=== PATIENT | female | born 1975 | race Caucasian/White ===

== ENCOUNTER 2021-08-11 05:52 | Emergency (ER) | payer MEDICAID ==
[~2021-08-11] VITALS: Ht 157.5 cm; Wt 72.6 kg
--- NOTE | 2021-08-11 05:59 | NUR ---
Patient to ER bed 7 to gown for evaluation. Side rails up. BS BEING TAKEN AT THIS TIME
[2021-08-11 06:06] VITALS: BP_SYST 128
--- NOTE | 2021-08-11 06:08 | NUR ---
PT AMBULATES TO ER FROM HOME FOR INTERMITTENT SOB FOR X 1 MONTH, WORSENING LAST NIGHT AND INCREASED THIS MORNING ALONG WITH DIZZINESS. DENIES ANY CP/FEVERS/CHILLS. DENIES ANY FLU LIKE SYMPTOMS. RESP EVEN AND UNLABORED, ON RA @98%. SPEAKING IN FULL CLEAR SENTENCES. REPORTS HISTORY OF DIABETES AND TAKING METFORMIN ONLY. DENIES N/V/D. BS AT BEDSIDE 169MG/DL. SKIN W/D/I. WAITING FOR ER MD SAL.
[2021-08-11] MEDS ORDERED: METF-863 PO (06:10)
--- NOTE | 2021-08-11 06:25 | NUR ---
DR VELEZ IN ROOM FOR EXAM
--- NOTE | 2021-08-11 06:36 | NUR ---
PT TO XRAY
[2021-08-11 07:02] LABS: BASOPHILS # (AUTO) 0.1 K/uL (0.0-0.2); BASOPHILS % (AUTO) 0.9 % (0.0-2.0); EOSINOPHILS # (AUTO) 0.1 K/uL (0.0-0.4); EOSINOPHILS % (AUTO) 1.9 % (0.0-4.0); HEMATOCRIT 38.7 % (36-48); HEMOGLOBIN 12.5 g/dL (12.0-16.0); LYMPHOCYTES % (AUTO) 40.2 % (20.5-51.5); MEAN CORPUSCULAR HEMOGLOBIN 27 pg (27-31); MEAN CORPUSCULAR HGB CONC 32 % (32-36); MEAN CORPUSCULAR VOLUME 82 fL (79.0-98.0); MONOCYTES # (AUTO) 0.5 K/uL (0.0-1.0); MONOCYTES % (AUTO) 6.8 % (1.7-9.3); NEUTROPHILS # (AUTO) 3.8 K/uL (1.8-7.7); NEUTROPHILS % (AUTO) 50.2 % (40.0-70.0); PLATELET COUNT (AUTO) 258 K/uL (130-430); RED BLOOD CELL COUNT(AUTO) 4.73 MIL/uL (4.2-6.2); RED CELL DISTRIBUTION WIDTH 14.1 % (9.0-15.0); WHITE BLOOD COUNT (AUTO) 7.5 K/uL (4.8-10.8)
--- NOTE | 2021-08-11 07:20 | NUR ---
PT. COMFORTABLE AT THIS TIME, REVIEWED POC FOR THIS AM
[2021-08-11 07:49] LABS: ALANINE AMINOTRANSFERASE 30 U/L (12-78); ALBUMIN 3.5 g/dL (3.4-4.8); ANION GAP 9 (5-15); ASPARTATE AMINOTRANSFERASE 18 U/L (10-37); CALCIUM 8.9 mg/dL (8.4-11.0); CHLORIDE 101 mmol/L (98-107); CREATININE 0.72 mg/dL (0.55-1.30); GLUCOSE 198 mg/dL (70-99); POTASSIUM 3.9 mmol/L (3.5-5.1); SODIUM SERUM 137 mmol/L (136-145); TOTAL BILIRUBIN 0.4 mg/dL (0.0-1.0); UREA NITROGEN, BLOOD 14 mg/dL (8-21)
[2021-08-11 07:50] LABS: GFR AFRICAN AMERICAN 112 mL/min (>90)
[2021-08-11 08:03] LABS: THYROID STIMULATING HORMONE 4.29 uIu/mL (0.36-3.74)
--- NOTE | 2021-08-11 08:26 | NUR ---
Patient given written and verbal discharge instructions and verbalizes understanding. discussed with patient the results and treatment provided. Patient in stable condition. ID arm band removed. Patient educated on pain management and to follow up with PMD. Pain Scale 0. Opportunity for questions provided and answered.
[2021-08-11 08:27] VITALS: BP_SYST 109
== END 2021-08-11 08:27 | disposition home or self-care (01) ==
LOC: SED 05:52
DX: R07.9 Chest pain, unspecified (principal); R42 Dizziness and giddiness
CPT/HCPCS: 36415; 71045; 80053; 81002; 81025; 82962; 83880; 84443; 84484; 85025; 93005; 99285

== ENCOUNTER 2022-12-12 03:58 | Emergency (ER) | payer MEDICAID ==
[~2022-12-12] VITALS: Ht 157.5 cm; Wt 71.2 kg
[~2022-12-12 03:58] MED LIST: METF-863 PO
[2022-12-12 04:13] VITALS: BP_SYST 115; PULSE 63; RESP 18; TEMP 97.2; O2SAT 97
[2022-12-12 04:57] LABS: BASOPHILS % (AUTO) 0.6 % (0.0-2.0); EOSINOPHILS # (AUTO) 0.2 K/uL (0.0-0.4); EOSINOPHILS % (AUTO) 2.3 % (0.0-4.0); HEMOGLOBIN 12.9 g/dL (12.0-16.0); LYMPHOCYTES % (AUTO) 40.7 % (20.5-51.5); MEAN CORPUSCULAR HEMOGLOBIN 26 pg (27-31); MEAN CORPUSCULAR HGB CONC 32 % (32-36); MEAN CORPUSCULAR VOLUME 81 fL (79.0-98.0); MONOCYTES # (AUTO) 0.4 K/uL (0.0-1.0); NEUTROPHILS # (AUTO) 3.7 K/uL (1.8-7.7); NEUTROPHILS % (AUTO) 50.4 % (40.0-70.0); PLATELET COUNT (AUTO) 258 K/uL (130-430); RED BLOOD CELL COUNT(AUTO) 4.94 MIL/uL (4.2-6.2); RED CELL DISTRIBUTION WIDTH 14.8 % (9.0-15.0); WHITE BLOOD COUNT (AUTO) 7.4 K/uL (4.8-10.8)
[2022-12-12 05:16] LABS: ANION GAP 9 (5-15); CALCIUM 9.1 mg/dL (8.4-11.0); CARBON DIOXIDE 27 mmol/L (23-29); CHLORIDE 104 mmol/L (98-107); CREATININE 0.79 mg/dL (0.55-1.30); GFR AFRICAN AMERICAN 100 mL/min (>90); GLUCOSE 137 mg/dL (74-106); POTASSIUM 3.8 mmol/L (3.5-5.1); SODIUM SERUM 140 mmol/L (136-145); UREA NITROGEN, BLOOD 14 mg/dL (8-21)
[2022-12-12 05:23] LABS: ALANINE AMINOTRANSFERASE 10 U/L (12-78); ALBUMIN 3.7 g/dL (3.4-4.8); ASPARTATE AMINOTRANSFERASE 14 U/L (10-37); TOTAL BILIRUBIN 0.4 mg/dL (0.0-1.0); TOTAL PROTEIN, SERUM 6.9 g/dL (6.4-8.3)
[2022-12-12 05:25] LABS: GFR NON AFRICAN-AMERICAN 83 mL/min (>90)
[2022-12-12] MEDS ORDERED: ASPIRIN 81 MG TABLET(ECOTRIN) PO ONE (06:15)
[2022-12-12 07:50] VITALS: BP_SYST 112; PULSE 60; RESP 16; TEMP 97.9; O2SAT 98
== END 2022-12-12 08:00 | disposition home or self-care (01) ==
LOC: SED 03:58
DX: R00.2 Palpitations (principal); R06.02 Shortness of breath; R06.00 Dyspnea, unspecified; E11.9 Type 2 diabetes mellitus without complications; Z79.899 Other long term (current) drug therapy
CPT/HCPCS: 36415; 71045; 80053; 81025; 84484; 85025; 85379; 93005; 99285